=== PATIENT | female | born 1990 | race Caucasian/White ===

== ENCOUNTER 2023-09-06 14:44 | Emergency (ER) | payer MEDICARE, OTHER, SELFPAY ==
--- NOTE | 2023-09-06 14:55 | ED.GENMED ---
History of Present Illness
General
Chief Complaint: Crisis Evaluation
Source: patient
Exam Limitations: none
Time Seen by Provider: 09/06/23 14:51
History of Present Illness
History of Present Illness:
See MDM
Past History
Past History
ED Past Medical History: Asthma, Seizures, Psychiatric (Anxiety, Depression, Suicidal attempts, PTSD) and Other ( Hep C, alcohol abuse)
ED Past Surgical History: Orthopedic (Right hand tendon repair)
Social History
Tobacco: Smoker
Alcohol: Former
Drug: Former user, Narcotics and IVDA
Personal: Single
Living: with family
Phy Exam
Physical Exam
Physical Exam:
See MDM
Course
Orders/Labs/Results
Orders:
Orders
09/06/23 14:55
Test Result ONCE
09/06/23 18:31
Alcohol Urgent
Complete Blood Count/With Diff Urgent
Comprehensive Metabolic Panel Urgent
Fentanyl, Urine Urgent
HCG, Urine Qualitative Screen Urgent
Date Specimen was Collected: 09/06/23
Time Specimen was Collected: 18:20
Urinalysis Reflex To Culture Urgent
Date Specimen was Collected: 09/06/23
Time Specimen was Collected: 18:20
Urine Drug Abuse Screen Urgent
Date Specimen was Collected: 09/06/23
Time Specimen was Collected: 18:20
09/06/23 18:39
Alprazolam [Xanax] 0.5 mg PO NOW STA
09/06/23 18:48
Hand, Right 3 View [CR Hand - Right Min 3 Views] Urgent
Comment:
Reason For Exam: injury/pain/swelling
Abnormal Lab Results
09/06/23
18:31
RBC 4.16 L 10^6/uL
(4.20-5.40)
Hgb 11.8 L g/dL
(12.0-16.0)
Hct 33.3 L %
(37.0-47.0)
MCV 80.0 L fL
(81.0-99.0)
MPV 10.9 H fL
(7.4-10.4)
Absolute Lymphs (auto) 3.5 H 10^3/uL
(1.2-3.4)
Absolute Monos (auto) 0.8 H 10^3/uL
(0.1-0.6)
Monocytes % 9.5 H %
(1.7-9.3)
Glucose 109 H mg/dl
(70-99)
Ur Buprenorphine Positive H
(Negative)
Ur Tricyclics Screen Positive H
(Negative)
09/06/23 18:31
09/06/23 18:31
Vital Signs
Initial and Last Documented VS:
Initial Vital Signs
Temp Pulse Resp BP Pulse Ox
98.2 F 112 18 111/77 98
09/06/23 15:00 09/06/23 15:00 09/06/23 15:00 09/06/23 15:00 09/06/23 15:00
Last Documented Vital Signs
Temp Pulse Resp BP Pulse Ox
98.2 F 112 18 111/77 98
09/06/23 15:00 09/06/23 15:00 09/06/23 15:00 09/06/23 15:00 09/06/23 15:00
MDM/Problems Addressed
Differential Diagnosis Includes:
HPI and MDM Narrative:
33-year-old female presenting from [place] and police for apparent 302. Patient is denying suicidal homicidal ideation. She states she was calling [place] because [facility] was not calling her back.
At this moment, it is not clear what is on the petition 302. Will have to speak with crisis.
Patient appears agitated and does appear very mildly intoxicated. She admits to alcohol use at 7 AM today
Pt admits to taking 8 klonopin today
Patient currently refusing to give any blood or urine samples
Physical exam
General: Walking without difficulty, slurring speech
HEENT: protecting airway
Neck: appears supple
CV: No evidence of cyanosis
Resp: No accessory muscle use
Abd: Non-distended
Extremities: No deformities
Neuro: alert
Psych: Agitated and anxious
Skin: Intact
Problems Addressed including Acute and Chronic Conditions affecting care:
1. Depression
Acuity: Chronic
Prognosis: stable
Details: Will have psych evaluate
Updates
3:10 PM Case discussed with community outreach worker patient well. She has a longstanding history of drug use and has declined drug and alcohol abuse in the past. Will have psychiatry see
5:30 PM Case discussed with crisis who indicated that 302 was upheld and related further evaluated tomorrow by psychiatry
Patient punched a wall in anger. She has swelling and tenderness to dorsum of right hand. Will obtain x-ray.
Differential Diagnosis (but not limited to): Drug abuse, alcohol abuse, depression
Testing considered: fentanyl urinalysis testing
Drug therapy (if applicable): OTC meds, please see d/c instruction regarding Rx drugs
Amount and/or Complexity of Data Reviewed
Clinical info obtained from: Patient
External data reviewed: N/A
Labs I independently reviewed (but not limited to): Alcohol level undetectable
Radiology: N/A
Pulse Ox: not hypoxic
EKG independently reviewed: N/A
Home Service Technician: N/A
Critical Care: N/A
Risk of Complication:
Social Determinants of health: Good social support
Discussed with other providers: N/A
Escalation of Care includes Admit/Obs: Crisis and psychiatry will continue to monitor overnight
Occasional wrong word or 'sound a like' substitutions may have occurred due to the inherent limitations of voice recognition software. Read the chart carefully and recognize, using context, where substitutions have occurred.
*Critical Care Note
Total Time (30-74mins, 75-104mins- exclusive of procedures): Not Applicable
ED Attending Note
-
Portions of this chart may have been created with voice recognition software.� Occasional wrong word or��sound alike� substitutions may have occurred due to the inherent limitations of voice recognition software.
Discharge Plan
Departure
Patient Disposition: Other
Date of Disposition: 09/06/23
Time of Disposition: 17:37
Patient Status:: 302
Discharge Problem:
Drug use disorder
Prescriptions:
No Action
quetiapine [Seroquel] 100 mg Tablet
100 mg PO BID
Rx Instructions:
0600, 1800
mirtazapine [Remeron] 30 mg Tablet
30 mg PO HS
omeprazole 20 mg Capsule,Delayed Release(Dr/Ec)
20 mg PO BID
quetiapine [Seroquel] 400 mg Tablet
400 mg PO HS
clonidine HCl 0.1 mg tablet
0.1 mg PO TID
Rx Instructions:
0600,1300, 2100
benztropine 0.5 mg tablet
0.5 mg PO BID
topiramate 100 mg tablet
100 mg PO HS
fluoxetine 20 mg capsule
20 mg PO TID
Rx Instructions:
0600,1300,2100
divalproex 500 mg Tablet,Delayed Release (Dr/Ec)
500 mg PO TID
Patient Comments:
04/27/23- pt could not confirm that she takes this medication. Pt seemed confused/unsure of medication. -WM
Rx Instructions:
0600,1300,2100
buspirone 15 mg Tablet
15 mg PO TID
Rx Instructions:
0600,1300,2100
buprenorphine HCl 8 mg Tablet, Sublingual
8 mg SUBLINGUAL TID
Rx Instructions:
0600,1200,1700
duloxetine 30 mg Capsule,Delayed Release(Dr/Ec)
30 mg PO DAILY
Patient Comments:
04/27/23- pt could not confirm that she takes this medication. Pt seemed confused/unsure of medication. -WM
trazodone 50 mg Tablet
50 mg PO HS
chlorpromazine 50 mg Tablet
50 mg PO QID
Referrals:
UNKNOWN,NO INTERVIEW [Family Provider] -
Interventions
Interventions:
*Risk Screen - Suicide Last Done: 09/06/23 15:00
*General Assessment Last Done: 09/06/23 15:00
*Neglect/Abuse Screening Last Done: 09/06/23 15:00
ED- Fall Risk Assessment Last Done: 09/06/23 15:10
ED-Psychological Assessment Last Done: 09/06/23 15:10
Discharge Date and Time
Print Language: MALTESE
[2023-09-06 15:00] VITALS: BP 111/77
[2023-09-06 15:10] VITALS: BMI 39.5
--- NOTE | 2023-09-06 15:20 | EDRN ---
Received patient pacing around the room. Patient upset that she was brought in by police on a 302. Patient appears to be intoxicated. Patient stated that she called [facility] because 'I am not doing well. I can't get in touch with my therapist.
I left them messages and they're not fucking calling me back.' Patient uncooperative with getting changed into paper scrubs. Patient stated 'I don't have to fucking get changed. I am not supposed to be here and no I will not give you any urine or
blood. It's none of your fucking business what is in my system.' Patient threw her phone against the wall after being told by security that she needs to change into scrubs. Patient eventually calmed down with verbal cues and got changed into the
scrubs. Patient stated that she is 'not in a good living situation' currently and is staying at the [facility] and is concerned that if she gets hospitalized her stuff will be taken and she won't get it back. Patient denies any thoughts of
suicide. Patent stated that she has been drinking today and took Klonopin 1 mg tabs x8 she thinks. aware.
--- NOTE | 2023-09-06 17:12 | W.PN.UPDATE ---
Update Note
Progress Note Update
Pt seen for 302 exam. Initially lying on side. Pt got up and began to deny 302 allegations/trying to argue for her discharge. Pt reportedly stated suicidal plans and intent. Initially agreed, then refused emergency treatment. Pt unkempt,
disheveled, drowsy with drooping eyelids, slurred speech, unsteady on her feet. Pt states the problem is she does not like where she is living. She denies allegations by [facility] staff. Pt impulsive with impaired judgement. No
overt signs of psychosis or iain.
Imp: Unspecified Mood d/o, with reported suicidal threats/statements, on 302
Hx of substance use, details unavailable, recently prescribed Subutex. R/o Klonopin overuse- pt filled a prescription for #90 tabs 1 mg on 09/02/23
Rec: continue evaluation/observation/attempt at psych placement. 302 is upheld.
Will follow. Need to verify current psychotropic medication regimen
[2023-09-06 18:42] LABS: % Basophils 0.4 % (0-2); % Eosinophils 2.2 % (0-6); % Immature Granulocytes 0.4 % (0-0.5); % Lymphocytes 41.3 % (20.5-51.1); % Monocytes 9.5 % (1.7-9.3); % Neutrophils 46.2 % (42.2-75.2); Absolute Eosinophils 0.2 10^3/uL (0-0.7); Absolute Lymphocytes 3.5 10^3/uL (1.2-3.4); Absolute Monocytes 0.8 10^3/uL (0.1-0.6); Absolute Neutrophils 3.9 10^3/uL (1.4-6.5); Hematocrit 33.3 % (37.0-47.0); Hemoglobin 11.8 g/dL (12.0-16.0); Mean Corp Hgb Conc. 35.4 g/dL (33.0-37.0); Mean Corpuscular Hgb 28.4 pg (27.0-31.0); Mean Platelet Volume 10.9 fL (7.4-10.4); Nucleated Red Blood Cells % 0 %; Platelet Count 243 10^3/uL (130-400); Red Blood Cell Count 4.16 10^6/uL (4.20-5.40); Red Cell Dist. Width 12.6 % (11.5-14.5); White Blood Cell Count 8.5 10^3/uL (4.8-10.8)
[2023-09-06] MEDS: XANAX 0.5 MG PO (18:45)
[2023-09-06 18:51] LABS: Urine Albumin Negative (Neg - Trace); Urine Bilirubin Negative (Negative); Urine Character Clear (Clear); Urine Color Yellow; Urine Glucose Negative (Negative); Urine Ketone Negative (Negative); Urine Leukocyte Negative (Negative); Urine Nitrite Negative (Negative); Urine Occult Blood Negative (Negative); Urine Specific Gravity 1.015 (<1.030); Urine Urobilinogen Negative (Neg - 1+)
[2023-09-06 18:53] LABS: HCG, Urine Qualitative Screen Negative
[2023-09-06 19:01] LABS: ALT (SGPT) 20 U/L (0-35); AST (SGOT) 26 U/L (14-36); Albumin 4.1 g/dl (3.5-5.0); Alkaline Phosphatase 75 U/L (38-126); Blood Urea Nitrogen 12 mg/dl (7-17); Calcium 9.7 mg/dl (8.4-10.2); Carbon Dioxide 24 mmol/L (22-30); Chloride 105 mmol/L (98-107); Estimated Creatinine Clearance > 125 ml/min; Glucose 109 mg/dl (70-99); Potassium 4.3 mmol/L (3.5-5.1); Sodium 138 mmol/L (135-145); Total Bilirubin 0.3 mg/dl (0.2-1.3); Total Protein 7.4 g/dl (6.3-8.2); eGFR > 60.00
[2023-09-06 19:02] LABS: Amphetamines Negative (Negative); Barbiturates Negative (Negative); Benzodiazepines Negative (Negative); Buprenorphine Positive (Negative); Cocaine Negative (Negative); Marijuana Negative (Negative); Methadone Negative (Negative); Methamphetamines Negative (Negative); Opiates Negative (Negative); Phencyclidine Negative (Negative); Tricyclic Antidepressants Positive (Negative)
[2023-09-06 19:05] LABS: Alcohol None Detected
[2023-09-06 19:20] LABS: Fentanyl, Urine Negative (Negative)
[2023-09-06] MEDS: HALDOL 5 MG IM (20:34)
--- NOTE | 2023-09-06 23:32 | PHANOTE ---
09/06/2023, [facility] rec tech, used pt.'s pill pack and recent pharmacy fill data to compile a list of pt.'s meds.; some pharmacy fill med. instructions differ from pill pack/pt.'s own bottles so did not confirm.
[2023-09-07] MEDS: KLONOPIN 1 MG PO (00:35)
[2023-09-07] MEDS: SUBUTEX 16 MG SL (00:35)
[2023-09-07] MEDS: NEURONTIN 800 MG PO ×2 (00:35→08:24)
[2023-09-07] MEDS: MINIPRESS 2 MG PO (01:30)
[2023-09-07] MEDS: SEROQUEL 200 MG PO (01:30)
[2023-09-07] MEDS: GEODON 80 MG PO (01:31)
[2023-09-07] MEDS: BUSPAR 20 MG PO (08:25)
[2023-09-07] MEDS: SUBUTEX 8 MG SL (08:26)
== END 2023-09-07 08:40 | disposition other institution (70) ==
LOC: EMR 14:44
PROVIDERS: EMERGENCY PHYSICIAN Student in an Organized Health Care Education/Training Program
DX: F19.129 Other psychoactive substance abuse with intoxication, unspecified (principal); F32.A Depression, unspecified; F17.200 Nicotine dependence, unspecified, uncomplicated; Z91.51 Personal history of suicidal behavior; Z86.19 Personal history of other infectious and parasitic diseases
CPT/HCPCS: 99285; 96372; 80053; 80306; 80307; 81003; 81025; 82077; 85025

== ENCOUNTER 2023-11-03 09:50 | Emergency (ER) | payer MEDICARE, OTHER, SELFPAY ==
[2023-11-03 10:14] VITALS: BP 121/94
[2023-11-03] MEDS: ZOFRAN ODT (ORALLY DISINTEGRATING) 4 MG PO (11:20)
--- NOTE | 2023-11-03 11:23 | ED.GENMED ---
History of Present Illness
<Armaan Guajardo PA-C - Last Filed: 11/04/23 09:06>
General
Chief Complaint: Withdrawal Symptoms
Source: patient
Time Seen by Provider: 11/03/23 11:05
History of Present Illness
History of Present Illness:
33-year-old female with extensive psychiatric past medical history presenting to the emergency department for evaluation of alcohol and drug abuse. Patient states her last drink was around midnight last night drinking 6 tall boys daily also noting
crack use this morning and fentanyl use about 2 hours ago. Patient is requesting to speak to [facility]. Currently endorsing feeling very anxious as well as nauseous. Currently denies SI/HI or hallucinations
Past History
<Armaan Guajardo PA-C - Last Filed: 11/04/23 09:06>
Past History
ED Past Medical History: Asthma, Seizures, Psychiatric (Anxiety, Depression, Suicidal attempts, PTSD) and Other ( Hep C, alcohol abuse)
ED Past Surgical History: Orthopedic (Right hand tendon repair)
Social History
Tobacco: Smoker
Alcohol: Former
Drug: Former user, Narcotics and IVDA
Personal: Single
Living: with family
Review of Systems
<Armaan Guajardo PA-C - Last Filed: 11/04/23 09:06>
Review of Systems
All Other Systems: ROS reviewed and negative except as documented in HPI and ROS
Phy Exam
<Armaan Guajardo PA-C - Last Filed: 11/04/23 09:06>
Physical Exam
Physical Exam:
GENERAL: Alert , in no apparent distress
EYE: conjunctiva clear
NECK: Supple
ENT: o/p clr, mmm.
CARDIAC: Regular rate and rhythm
LUNGS: Clear breath sounds bilaterally, no acute respiratory distress, no wheezes/rales/rhonchi
NEUROLOGICAL: Alert and oriented
SKIN: Warm and dry, skin intact.
MUSCULOSKELETAL: well perfused.
PSYCH: Normal and appropriate interaction.
Scores
<Armaan Guajardo PA-C - Last Filed: 11/04/23 09:06>
Heart Failure Risk
Heart Failure Risk Score: Not Applicable
Heart Score for Chest Pain Patients
STEMI patient?: Not applicable
Withdrawal Assessment of Alcohol
Withdrawal Assessment Completed?: Not applicable
Course
<Armaan Guajardo PA-C - Last Filed: 11/04/23 09:06>
Orders/Labs/Results
Orders:
Orders
11/03/23 10:18
Crisis Consult Urgent
Reason for Consult: SI
1:1 Observation - Suicide/ Violent Behavior As Directed
11/03/23 11:13
Ondansetron Orally Disint [Zofran Odt (Orally Disintegrating)] 4 mg PO NOW STA
11/03/23 14:17
Alprazolam [Xanax] 1 mg PO NOW STA
Diphenhydramine [Benadryl] 25 mg PO NOW STA
Test Result ONCE
11/03/23 14:48
Complete Blood Count/With Diff Urgent
Comprehensive Metabolic Panel Urgent
Fentanyl, Urine Urgent
HCG, Serum Qualitative Screen Urgent
Urine Drug Abuse Screen Urgent
Date Specimen was Collected: 11/03/23
Time Specimen was Collected: 14:37
Abnormal Lab Results
11/03/23
14:48
Hct 34.8 L %
(37.0-47.0)
MCV 80.0 L fL
(81.0-99.0)
MPV 11.1 H fL
(7.4-10.4)
Absolute Lymphs (auto) 3.5 H 10^3/uL
(1.2-3.4)
Absolute Monos (auto) 0.8 H 10^3/uL
(0.1-0.6)
Sodium 133 L mmol/L
(135-145)
Chloride 97 L mmol/L
(98-107)
Ur Buprenorphine Positive H
(Negative)
Urine Fentanyl Screen Positive H
(Negative)
Ur Barbiturates Screen Positive H
(Negative)
Ur Tricyclics Screen Positive H
(Negative)
U Benzodiazepines Scrn Positive H
(Negative)
Urine Cocaine Screen Positive H
(Negative)
11/03/23 14:48
11/03/23 14:48
Vital Signs
Initial and Last Documented VS:
Initial Vital Signs
Temp Pulse Resp BP Pulse Ox
97.6 F 55 18 121/94 96
11/03/23 10:14 11/03/23 10:14 11/03/23 10:14 11/03/23 10:14 11/03/23 10:14
Last Documented Vital Signs
Temp Pulse Resp BP Pulse Ox
97.6 F 55 18 113/71 98
11/03/23 17:29 11/03/23 17:29 11/03/23 17:29 11/03/23 17:29 11/03/23 17:29
Wanlt;Cy No PA-C - Last Filed: 11/03/23 18:23>
Orders/Labs/Results
Orders:
Orders
11/03/23 10:18
Crisis Consult Urgent
Reason for Consult: SI
1:1 Observation - Suicide/ Violent Behavior As Directed
11/03/23 11:13
Ondansetron Orally Disint [Zofran Odt (Orally Disintegrating)] 4 mg PO NOW STA
11/03/23 14:17
Alprazolam [Xanax] 1 mg PO NOW STA
Diphenhydramine [Benadryl] 25 mg PO NOW STA
Test Result ONCE
11/03/23 14:48
Complete Blood Count/With Diff Urgent
Comprehensive Metabolic Panel Urgent
Fentanyl, Urine Urgent
HCG, Serum Qualitative Screen Urgent
Urine Drug Abuse Screen Urgent
Date Specimen was Collected: 11/03/23
Time Specimen was Collected: 14:37
Abnormal Lab Results
11/03/23
14:48
Hct 34.8 L %
(37.0-47.0)
MCV 80.0 L fL
(81.0-99.0)
MPV 11.1 H fL
(7.4-10.4)
Absolute Lymphs (auto) 3.5 H 10^3/uL
(1.2-3.4)
Absolute Monos (auto) 0.8 H 10^3/uL
(0.1-0.6)
Sodium 133 L mmol/L
(135-145)
Chloride 97 L mmol/L
(98-107)
Ur Buprenorphine Positive H
(Negative)
Urine Fentanyl Screen Positive H
(Negative)
Ur Barbiturates Screen Positive H
(Negative)
Ur Tricyclics Screen Positive H
(Negative)
U Benzodiazepines Scrn Positive H
(Negative)
Urine Cocaine Screen Positive H
(Negative)
11/03/23 14:48
11/03/23 14:48
Vital Signs
Initial and Last Documented VS:
Initial Vital Signs
Temp Pulse Resp BP Pulse Ox
97.6 F 55 18 121/94 96
11/03/23 10:14 11/03/23 10:14 11/03/23 10:14 11/03/23 10:14 11/03/23 10:14
Last Documented Vital Signs
Temp Pulse Resp BP Pulse Ox
97.6 F 55 18 113/71 98
11/03/23 17:29 11/03/23 17:29 11/03/23 17:29 11/03/23 17:29 11/03/23 17:29
<Armaan Guajardo PA-C - Last Filed: 11/04/23 09:06>
MDM/Problems Addressed
Differential Diagnosis Includes:
Polysubstance use, no current signs of active withdrawal, no current signs of infectious etiology
MDM/Problems Addressed:
33-year-old female with multiple previous visits to this emergency department for polysubstance abuse presenting back to the emergency department for the same, currently requesting [facility] evaluation and consultation. Stating she is feeling very
anxious and requesting benzos for anxiety lack of physical exam findings for acute withdrawal I do not feel this is needed at the time. Zofran 4 mg ODT ordered for nausea. Will reassess following
Chronic conditions affecting care: Psychiatric illness
Acute Exacerbation and/or Progression of Chronic Illness: Psychiatric illness
<Armaan Guajardo PA-C - Last Filed: 11/04/23 09:06>
*Pulse Oximetry
Patient hypoxic: no
*Critical Care Note
Total Time (30-74mins, 75-104mins- exclusive of procedures): Not Applicable
Data Reviewed
Review of Other/Old Records Reveals: Records
Source: patient and records
<Armaan Guajardo PA-C - Last Filed: 11/04/23 09:06>
Comment
Comment:
14:18 - Per [facility] they are attempting to place in patient. They are questing labs be ordered. Patient noting feeling very anxious and unwell. 0.5mg tablet xanax and 25mg PO benadryl ordered.
Patient Management
Escalation/DeEscalation of care consider admission/obs:
Patient to be dispositioned to inpatient drug/alcohol rehab. Attempting to admit at [facility]. Awaiting [facility] for final dispo
<Cy No PA-C - Last Filed: 11/03/23 18:23>
Update Note
Update Note:
Assumed care of patient pending evaluation by drug and alcohol abuse specialist from [facility]. Patient does have a bed available at [facility]. Will plan on discharging to this facility
ED Attending Note
<Armaan Guajardo PA-C - Last Filed: 11/04/23 09:06>
-
Portions of this chart may have been created with voice recognition software.� Occasional wrong word or��sound alike� substitutions may have occurred due to the inherent limitations of voice recognition software.
Discharge Plan
Departure
Patient Disposition: Other
Date of Disposition: 11/03/23
Time of Disposition: 15:21
Patient with high blood pressure during this ER visit?: No
Discharge Problem:
Polysubstance abuse
Instructions: Drug Misuse and Addiction (DC)
Prescriptions:
No Action
ziprasidone HCl 80 mg capsule
80 mg PO BID
Patient Comments:
09/06/2023, pink slash on pill pack, not sure if discontinued or not.
quetiapine 200 mg Tablet
200 mg PO HS
clonazepam 1 mg Tablet
1 mg PO TID
Patient Comments:
09/06/2023, filled on 09/02/2023 and instructed to use for 15 days.
gabapentin 800 mg Tablet
800 mg PO TID
gabapentin 800 mg Tablet
800 mg PO DAILY PRN (Reason: nerve pain)
buspirone 10 mg Tablet
20 mg PO TID
Patient Comments:
09/06/2023, prescribed for pt. to take 6 tablets a day.
prazosin 2 mg Capsule
2 mg PO BID
Patient Comments:
09/06/2023, most recent prescription is for 1 mg capsule daily but pt. has pill pack and bottles with instructions to take 2 mg BID.
chlorpromazine 50 mg Tablet
150 mg PO BID
Patient Comments:
09/06/2023, prescribed for pt. to take 9 tablets a day.
buprenorphine HCl 8 mg tablet, sublingual
8 mg SUBLINGUAL DAILY
buprenorphine HCl 8 mg tablet, sublingual
16 mg SUBLINGUAL HS
Referrals:
Dameon Vasquez MD [Family Provider] -
Activity Restrictions/Additional Instructions:
Please seek further treatment at drug and alcohol abuse center.
Interventions
Interventions:
*Risk Screen - Suicide Last Done: 11/03/23 10:17
*General Assessment Last Done: 11/03/23 10:17
*Neglect/Abuse Screening Last Done: 11/03/23 10:17
*Nursing Disposition Last Done: 11/03/23 19:39
ED- Neurological Assessment Last Done: 11/03/23 12:00
ED-Psychological Assessment Last Done: 11/03/23 12:00
Discharge Date and Time
Discharge Date/Time: 11/03/23 19:40
Print Language: PASHTO
[2023-11-03] MEDS: XANAX 1 MG PO (14:38)
[2023-11-03] MEDS: BENADRYL 25 MG PO (14:38)
[2023-11-03 14:54] LABS: % Basophils 0.3 % (0-2); % Eosinophils 1.1 % (0-6); % Immature Granulocytes 0.2 % (0-0.5); % Lymphocytes 38.5 % (20.5-51.1); % Monocytes 9.1 % (1.7-9.3); % Neutrophils 50.8 % (42.2-75.2); Absolute Eosinophils 0.1 10^3/uL (0-0.7); Absolute Lymphocytes 3.5 10^3/uL (1.2-3.4); Absolute Monocytes 0.8 10^3/uL (0.1-0.6); Absolute Neutrophils 4.6 10^3/uL (1.4-6.5); Hematocrit 34.8 % (37.0-47.0); Hemoglobin 12.3 g/dL (12.0-16.0); Mean Corp Hgb Conc. 35.3 g/dL (33.0-37.0); Mean Corpuscular Hgb 28.3 pg (27.0-31.0); Mean Platelet Volume 11.1 fL (7.4-10.4); Nucleated Red Blood Cells % 0 %; Platelet Count 249 10^3/uL (130-400); Red Blood Cell Count 4.35 10^6/uL (4.20-5.40); Red Cell Dist. Width 13.8 % (11.5-14.5)
[2023-11-03 15:08] LABS: HCG, Serum Qualitative Screen Negative
[2023-11-03 15:10] LABS: ALT (SGPT) 21 U/L (0-35); AST (SGOT) 29 U/L (14-36); Albumin 4.7 g/dl (3.5-5.0); Alkaline Phosphatase 68 U/L (38-126); Blood Urea Nitrogen 17 mg/dl (7-17); Calcium 9.5 mg/dl (8.4-10.2); Carbon Dioxide 27 mmol/L (22-30); Chloride 97 mmol/L (98-107); Glucose 99 mg/dl (70-99); Potassium 4.6 mmol/L (3.5-5.1); Sodium 133 mmol/L (135-145); Total Bilirubin 0.5 mg/dl (0.2-1.3); Total Protein 7.9 g/dl (6.3-8.2); eGFR > 60.00
[2023-11-03 15:20] LABS: Amphetamines Negative (Negative); Barbiturates Positive (Negative); Benzodiazepines Positive (Negative); Buprenorphine Positive (Negative); Cocaine Positive (Negative); Marijuana Negative (Negative); Methadone Negative (Negative); Methamphetamines Negative (Negative); Opiates Negative (Negative); Phencyclidine Negative (Negative); Tricyclic Antidepressants Positive (Negative)
[2023-11-03 15:39] LABS: Fentanyl, Urine Positive (Negative)
[2023-11-03 17:29] VITALS: BP 113/71
== END 2023-11-03 19:40 | disposition other institution (70) ==
LOC: EMR 09:50
PROVIDERS: Physician Assistant Medical; EMERGENCY PHYSICIAN Emergency Medicine; FAMILY PHYSICIAN Family Medicine
DX: F19.10 Other psychoactive substance abuse, uncomplicated (principal); F17.200 Nicotine dependence, unspecified, uncomplicated; F41.9 Anxiety disorder, unspecified; F32.A Depression, unspecified
CPT/HCPCS: 99285; 80053; 80306; 80307; 84703; 85025

== ENCOUNTER 2023-11-09 14:49 | Emergency (ER) | payer MEDICARE, OTHER, SELFPAY ==
[2023-11-09 14:56] VITALS: BP 128/83
[2023-11-09 17:22] VITALS: BP 130/82
--- NOTE | 2023-11-09 17:23 | ED.GENMED ---
History of Present Illness
General
Chief Complaint: Withdrawal Symptoms
Source: patient and records
Time Seen by Provider: 11/09/23 16:09
History of Present Illness
History of Present Illness:
33-year-old female with extensive psychiatric past medical history, well-known visitor to this emergency department, presenting back to the emergency department for drug and alcohol abuse stating that she last used yesterday and feels as if she is
currently withdrawing. Patient was recently seen in this emergency department and disposition to [facility] but patient left this facility after about 24 hours. Patient states she has also not had any of her medications over the last 2
days and is requesting this. Currently noting persistent nausea. No other concerns
Past History
Past History
ED Past Medical History: Asthma, Seizures, Psychiatric (Anxiety, Depression, Suicidal attempts, PTSD) and Other ( Hep C, alcohol abuse)
ED Past Surgical History: Orthopedic (Right hand tendon repair)
Social History
Tobacco: Smoker
Alcohol: Chronic alcoholic
Drug: Former user, Narcotics and IVDA
Personal: Single
Living: with family
Review of Systems
Review of Systems
All Other Systems: ROS reviewed and negative except as documented in HPI and ROS
Phy Exam
Physical Exam
Physical Exam:
GENERAL: Alert , in no apparent distress, unkempt, somewhat malodorous
EYE: conjunctiva clear
NECK: Supple
ENT: o/p clr, mmm.
CARDIAC: Regular rate and rhythm
LUNGS: Clear breath sounds bilaterally, no acute respiratory distress, no wheezes/rales/rhonchi
NEUROLOGICAL: Alert and oriented
SKIN: Warm and dry, skin intact.
MUSCULOSKELETAL: well perfused.
PSYCH: Normal and appropriate interaction.
Scores
Heart Failure Risk
Heart Failure Risk Score: Not Applicable
Heart Score for Chest Pain Patients
STEMI patient?: Not applicable
Withdrawal Assessment of Alcohol
Withdrawal Assessment Completed?: Not applicable
Course
Orders/Labs/Results
Orders:
Orders
11/09/23 17:08
Fluoxetine HCl [Prozac] 40 mg PO NOW STA
Gabapentin [Neurontin] 800 mg PO NOW STA
Ondansetron Orally Disint [Zofran Odt (Orally Disintegrating)] 4 mg PO NOW STA
11/09/23 17:18
Ziprasidone [Geodon] 80 mg PO NOW STA
11/09/23 17:19
Alprazolam [Xanax] 0.5 mg PO NOW STA
Vital Signs
Initial and Last Documented VS:
Initial Vital Signs
Temp Pulse Resp BP Pulse Ox
97.6 F 84 16 128/83 98
11/09/23 14:56 11/09/23 14:56 11/09/23 14:56 11/09/23 14:56 11/09/23 14:56
Last Documented Vital Signs
Temp Pulse Resp BP Pulse Ox
97.6 F 82 16 130/82 98
11/09/23 14:56 11/09/23 17:22 11/09/23 14:56 11/09/23 17:22 11/09/23 14:56
MDM/Problems Addressed
Differential Diagnosis Includes:
Polysubstance abuse, psychiatric illness, substance withdrawal
MDM/Problems Addressed:
33-year-old female presenting to the emergency department for evaluation of substance abuse. Had just been at rehab but left after a few days. Returning to the emergency department requesting help again. Currently patient is experiencing mild
withdrawal symptoms. Last use of both alcohol and opiates/cocaine was yesterday evening. Will consult with [facility] again for evaluation. Patient requesting her normal home medications as well as something for her anxiousness and nausea. Patient's
usual chronic medications ordered. Zofran and 1/2 mg Xanax ordered for symptomatic control as well.
Chronic conditions affecting care: Psychiatric illness
Acute Exacerbation and/or Progression of Chronic Illness: Psychiatric illness
*Pulse Oximetry
Patient hypoxic: no
*Critical Care Note
Total Time (30-74mins, 75-104mins- exclusive of procedures): Not Applicable
Data Reviewed
Review of Other/Old Records Reveals: Labs and Records
Patient Management
Escalation/DeEscalation of care consider admission/obs:
Patient was able to be placed at drug and alcohol rehab by [facility]. She has a bed available tonight and [employer] will be taking her to the facility. She is stable for discharge from the emergency department.
ED Attending Note
-
Portions of this chart may have been created with voice recognition software.� Occasional wrong word or��sound alike� substitutions may have occurred due to the inherent limitations of voice recognition software.
Discharge Plan
Departure
Patient Disposition: Home (Routine Discharge)
Date of Disposition: 11/09/23
Time of Disposition: 18:13
Patient with high blood pressure during this ER visit?: No
Discharge Problem:
Polysubstance abuse, Non compliance w medication regimen
Instructions: Drug Misuse and Addiction (DC)
Prescriptions:
No Action
ziprasidone HCl 80 mg capsule
80 mg PO BID
Patient Comments:
09/06/2023, pink slash on pill pack, not sure if discontinued or not.
quetiapine 200 mg Tablet
200 mg PO HS
clonazepam 1 mg Tablet
1 mg PO TID
Patient Comments:
09/06/2023, filled on 09/02/2023 and instructed to use for 15 days.
gabapentin 800 mg Tablet
800 mg PO TID
gabapentin 800 mg Tablet
800 mg PO DAILY PRN (Reason: nerve pain)
buspirone 10 mg Tablet
20 mg PO TID
Patient Comments:
09/06/2023, prescribed for pt. to take 6 tablets a day.
prazosin 2 mg Capsule
2 mg PO BID
Patient Comments:
09/06/2023, most recent prescription is for 1 mg capsule daily but pt. has pill pack and bottles with instructions to take 2 mg BID.
chlorpromazine 50 mg Tablet
150 mg PO BID
Patient Comments:
09/06/2023, prescribed for pt. to take 9 tablets a day.
buprenorphine HCl 8 mg tablet, sublingual
8 mg SUBLINGUAL DAILY
buprenorphine HCl 8 mg tablet, sublingual
16 mg SUBLINGUAL HS
Referrals:
Dameon Vasquez MD [Family Provider] -
Interventions
Interventions:
*Risk Screen - Suicide Last Done: 11/09/23 14:56
*General Assessment Last Done: 11/09/23 14:56
*Neglect/Abuse Screening Last Done: 11/09/23 14:56
ED- Fall Risk Assessment Last Done: 11/09/23 18:15
*ED COVID-19 Vaccine History Last Done: 11/09/23 18:15
*Nursing Disposition Last Done: 11/09/23 18:15
ED- Neurological Assessment Last Done: 11/09/23 17:25
ED-Psychological Assessment Last Done: 11/09/23 17:25
Discharge Date and Time
Discharge Date/Time: 11/09/23 18:18
Print Language: MACEDONIAN
[2023-11-09] MEDS: NEURONTIN 800 MG PO (17:29)
[2023-11-09] MEDS: PROZAC 40 MG PO (17:29)
[2023-11-09] MEDS: GEODON 80 MG PO (17:30)
[2023-11-09] MEDS: ZOFRAN ODT (ORALLY DISINTEGRATING) 4 MG PO (17:30)
[2023-11-09] MEDS: XANAX 0.5 MG PO (17:32)
== END 2023-11-09 18:18 | disposition home or self-care (01) ==
LOC: EMR 14:49
PROVIDERS: EMERGENCY PHYSICIAN Emergency Medicine; FAMILY PHYSICIAN Family Medicine
DX: F19.10 Other psychoactive substance abuse, uncomplicated (principal); R11.0 Nausea; F10.20 Alcohol dependence, uncomplicated; J45.909 Unspecified asthma, uncomplicated; F32.A Depression, unspecified; F41.9 Anxiety disorder, unspecified; R56.9 Unspecified convulsions; Z91.148 Patient's other noncompliance with medication regimen for other reason; F43.10 Post-traumatic stress disorder, unspecified; F17.200 Nicotine dependence, unspecified, uncomplicated; Z91.51 Personal history of suicidal behavior; Z86.19 Personal history of other infectious and parasitic diseases; Z88.8 Allergy status to other drugs, medicaments and biological substances
CPT/HCPCS: 99283

== ENCOUNTER 2023-11-15 10:05 | Emergency (ER) | payer MEDICARE, OTHER, SELFPAY ==
[2023-11-15 10:07] VITALS: BP 116/73
--- NOTE | 2023-11-15 10:29 | EDRN ---
Pt attempting urine spec at this time.
--- NOTE | 2023-11-15 10:30 | EDRN ---
Security [place] ordering pt a diet tray at this time.
--- NOTE | 2023-11-15 10:45 | EDRN ---
Pt provided a urine spec and bloods were drawn and sent. Pt requesting a boxed lunch, a lucas kaylee, zofran, her usual gabapentin (stated di not take today) and a xanax. Dr. Ann informed of pt's request for medications and will be in to see pt.
[2023-11-15 11:02] LABS: HCG, Serum Qualitative Screen Negative
[2023-11-15 11:09] LABS: Alcohol None Detected; Blood Urea Nitrogen 7 mg/dl (7-17); Calcium 9.5 mg/dl (8.4-10.2); Carbon Dioxide 26 mmol/L (22-30); Chloride 99 mmol/L (98-107); Glucose 98 mg/dl (70-99); Potassium 3.8 mmol/L (3.5-5.1); Sodium 134 mmol/L (135-145); eGFR > 60.00
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
[2023-11-15] MEDS: KLONOPIN 1 MG PO (11:26)
[2023-11-15] MEDS: ZOFRAN ODT (ORALLY DISINTEGRATING) 4 MG PO (11:26)
[2023-11-15] MEDS: NEURONTIN 300 MG PO (11:26)
[2023-11-15 11:29] LABS: % Basophils 0.3 % (0-2); % Eosinophils 1.6 % (0-6); % Immature Granulocytes 0.4 % (0-0.5); % Lymphocytes 26.7 % (20.5-51.1); % Monocytes 7.2 % (1.7-9.3); % Neutrophils 63.8 % (42.2-75.2); Absolute Eosinophils 0.2 10^3/uL (0-0.7); Absolute Lymphocytes 2.9 10^3/uL (1.2-3.4); Absolute Monocytes 0.8 10^3/uL (0.1-0.6); Absolute Neutrophils 6.9 10^3/uL (1.4-6.5); Hematocrit 32.7 % (37.0-47.0); Hemoglobin 11.4 g/dL (12.0-16.0); Mean Corp Hgb Conc. 34.9 g/dL (33.0-37.0); Mean Corpuscular Hgb 28.1 pg (27.0-31.0); Mean Corpuscular Volume 80.5 fL (81.0-99.0); Mean Platelet Volume 11.9 fL (7.4-10.4); Nucleated Red Blood Cells % 0 %; Platelet Count 220 10^3/uL (130-400); Red Blood Cell Count 4.06 10^6/uL (4.20-5.40); Red Cell Dist. Width 13.9 % (11.5-14.5); White Blood Cell Count 10.8 10^3/uL (4.8-10.8)
[2023-11-15 11:32] VITALS: BMI 35.5
--- NOTE | 2023-11-15 11:34 | EDRN ---
Pt administered molly alfonsoers at thistime.
[2023-11-15 11:49] LABS: Amphetamines Negative (Negative); Barbiturates Negative (Negative); Benzodiazepines Positive (Negative); Buprenorphine Negative (Negative); Cocaine Positive (Negative); Marijuana Negative (Negative); Methadone Positive (Negative); Methamphetamines Negative (Negative); Opiates Positive (Negative); Phencyclidine Negative (Negative); Tricyclic Antidepressants Negative (Negative)
[2023-11-15 12:53] LABS: Fentanyl, Urine Positive (Negative)
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
[2023-11-15 19:19] LABS: COVID-19 Antigen Negative (Negative)
== END 2023-11-15 13:10 ==
LOC: EMR 10:05
PROVIDERS: Emergency Medicine; EMERGENCY PHYSICIAN Emergency Medicine
DX: F32.A Depression, unspecified (principal); R45.851 Suicidal ideations; J45.909 Unspecified asthma, uncomplicated; F43.10 Post-traumatic stress disorder, unspecified; F17.200 Nicotine dependence, unspecified, uncomplicated; Z86.19 Personal history of other infectious and parasitic diseases; Z91.51 Personal history of suicidal behavior
CPT/HCPCS: 99283; 80048; 80306; 80307; 82077; 84703; 85025; 87811; 93005

== ENCOUNTER 2023-11-21 07:53 | Emergency (ER) | payer MEDICARE, SELFPAY ==
[2023-11-21 07:54] VITALS: BP 124/80
--- NOTE | 2023-11-21 08:07 | ED.GENMED ---
History of Present Illness
General
Chief Complaint: Alcohol Problem
Source: patient
Exam Limitations: none
Time Seen by Provider: 11/21/23 07:59
History of Present Illness
History of Present Illness:
33-year-old female presents requesting placement into rehab for her alcohol use, fentanyl use and cocaine use. She last used yesterday. She starting to feel anxious and nauseous. She has been through this process before. She has no thoughts of
harming self or others.. Patient no chest pain or shortness of breath. No other complaints at this time
Past History
Past History
ED Past Medical History: Asthma, Seizures, Psychiatric (Anxiety, Depression, Suicidal attempts, PTSD) and Other ( Hep C, alcohol abuse)
ED Past Surgical History: Orthopedic (Right hand tendon repair)
Social History
Tobacco: Smoker
Alcohol: Chronic alcoholic
Drug: Former user, Narcotics and IVDA
Personal: Single
Living: with family
Employment: Not employed
Phy Exam
Physical Exam
Physical Exam:
General: Unkempt female no acute respiratory distress
Lungs: Normal respiratory rate
Neurologic: Normal gait conversing appropriately no facial asymmetry no tremor
Skin: Multiple scars on the arms from prior IV drug abuse
Scores
Withdrawal Assessment of Alcohol
Withdrawal Assessment Completed?: No
Course
Orders/Labs/Results
Orders:
Orders
11/21/23 08:02
Lorazepam [Ativan] 1 mg PO NOW STA
Ondansetron Orally Disint [Zofran Odt (Orally Disintegrating)] 4 mg PO NOW STA
11/21/23 08:15
Drug Screen, Urine [Urine Drug Abuse Screen] Urgent
Date Specimen was Collected: 11/21/23
Time Specimen was Collected: 08:46
Vital Signs
Initial and Last Documented VS:
Initial Vital Signs
Temp Pulse Resp BP Pulse Ox
98.5 F 74 16 124/80 98
11/21/23 07:54 11/21/23 07:54 11/21/23 07:54 11/21/23 07:54 11/21/23 07:54
Last Documented Vital Signs
Temp Pulse Resp BP Pulse Ox
98.5 F 76 16 117/90 98
11/21/23 07:54 11/21/23 09:22 11/21/23 09:22 11/21/23 09:22 11/21/23 09:22
MDM/Problems Addressed
Differential Diagnosis Includes:
Patient here for placement into rehab. No overt significant withdrawal symptoms currently. Last used alcohol fentanyl and cocaine yesterday. Drug screen pending. Call placed into [facility]
*Critical Care Note
Total Time (30-74mins, 75-104mins- exclusive of procedures): Not Applicable
Update Note
Update Note:
Patient evaluated by Humaira mckeon. There is a spot available. She will be discharged from here to rehab.
ED Attending Note
-
Portions of this chart may have been created with voice recognition software.� Occasional wrong word or��sound alike� substitutions may have occurred due to the inherent limitations of voice recognition software.
Discharge Plan
Departure
Patient Disposition: Acute Rehab Facility
Date of Disposition: 11/21/23
Time of Disposition: 11:43
Discharge Problem:
Substance abuse
Prescriptions:
No Action
ziprasidone HCl 80 mg capsule
80 mg PO BID
Patient Comments:
09/06/2023, pink slash on pill pack, not sure if discontinued or not.
quetiapine 200 mg Tablet
200 mg PO HS
clonazepam 1 mg Tablet
1 mg PO TID
Patient Comments:
09/06/2023, filled on 09/02/2023 and instructed to use for 15 days.
gabapentin 800 mg Tablet
800 mg PO TID
gabapentin 800 mg Tablet
800 mg PO DAILY PRN (Reason: nerve pain)
buspirone 10 mg Tablet
20 mg PO TID
Patient Comments:
09/06/2023, prescribed for pt. to take 6 tablets a day.
prazosin 2 mg Capsule
2 mg PO BID
Patient Comments:
09/06/2023, most recent prescription is for 1 mg capsule daily but pt. has pill pack and bottles with instructions to take 2 mg BID.
chlorpromazine 50 mg Tablet
150 mg PO BID
Patient Comments:
09/06/2023, prescribed for pt. to take 9 tablets a day.
buprenorphine HCl 8 mg tablet, sublingual
8 mg SUBLINGUAL DAILY
buprenorphine HCl 8 mg tablet, sublingual
16 mg SUBLINGUAL HS
Referrals:
UNKNOWN - PT NOT,INTERVIEWE [Family Provider] -
Activity Restrictions/Additional Instructions:
Seek further treatment through rehab
Interventions
Interventions:
*Risk Screen - Suicide Last Done: 11/21/23 08:20
*General Assessment Last Done: 11/21/23 08:18
*Neglect/Abuse Screening Last Done: 11/21/23 08:10
*ED COVID-19 Vaccine History Last Done: 11/21/23 08:18
ED- Neurological Assessment Last Done: 11/21/23 08:18
ED-Psychological Assessment Last Done: 11/21/23 08:18
Discharge Date and Time
Print Language: UPPER SORBIAN
[2023-11-21] MEDS: ZOFRAN ODT (ORALLY DISINTEGRATING) 4 MG PO (08:14)
[2023-11-21] MEDS: ATIVAN 1 MG PO (08:14)
[2023-11-21 09:22] VITALS: BP 117/90
[2023-11-21 11:30] VITALS: BP 133/74
== END 2023-11-21 12:23 ==
LOC: EMR 07:53
PROVIDERS: EMERGENCY PHYSICIAN Emergency Medicine
DX: F10.10 Alcohol abuse, uncomplicated (principal); F14.10 Cocaine abuse, uncomplicated; F41.8 Other specified anxiety disorders; J45.909 Unspecified asthma, uncomplicated; F43.10 Post-traumatic stress disorder, unspecified; F17.200 Nicotine dependence, unspecified, uncomplicated; Z86.19 Personal history of other infectious and parasitic diseases; Z91.51 Personal history of suicidal behavior
CPT/HCPCS: 99282